=== PATIENT | female | born 1945 | race Caucasian/White ===

== ENCOUNTER 2024-09-29 20:44 | Emergency (ER) | payer MEDICARE ==
[~2024-09-29] VITALS: Ht 154.9 cm; Wt 61.2 kg
[2024-09-29 21:11] LABS: BASO % 0.8 % (0.0-1.0); EOS # 0.2 10*3/uL (0.0-0.4); EOS % 4.5 % (1.0-4.0); HEMATOCRIT 36.2 % (37.0-47.0); MEAN CELL VOLUME 86.4 fl (81.0-99.0); MEAN CORPUSCULAR HGB 27.2 pg (27.0-31.0); MEAN CORPUSCULAR HGB CONC 31.5 g/dl (33.0-37.0); MEAN PLATELET VOLUME 9.4 fl (9.6-12.3); MONO # 0.5 10*3/uL (0.1-1.0); MONO % 9.3 % (3.0-9.0); NEUT # 2.7 10*3/uL (2.3-7.9); NEUT % 53.1 % (47.0-73.0); PLATELET COUNT AUTOMATED 309 10*3/uL (130-400); RED BLOOD COUNT 4.19 10*6/uL (4.10-5.10); RED CELL DISTRI WIDTH 13.2 % (0-14.5); WHITE BLOOD COUNT 5.1 10*3/uL (4.8-10.8)
[2024-09-29 21:43] LABS: ALKALINE PHOSPHATASE 74 U/L (46-116); BUN 11 mg/dl (9-23); CHLORIDE 99 mmol/L (98-107); CPK 55 U/L (34-171); POTASSIUM 3.7 mmol/L (3.4-5.1); TOTAL PROTEIN 6.8 gm/dL (6.0-8.0)
[2024-09-29 21:44] LABS: ETHYL ALCOHOL < 3.0 mg/dl (<3); SGPT/ALT < 7 U/L (5-49)
[2024-09-29 21:51] LABS: BILIRUBIN Negative (Negative); BLOOD Negative (Negative); CLARITY Clear (Clear); COLOR Yellow (Yellow); GLUCOSE Negative (Negative); KETONE Negative (Negative); LEUKO ESTERASE Trace (Negative); NITRITE Negative (Negative); SPECIFIC GRAVITY 1.015 (1.001-1.030); UROBILINOGEN 0.2 E.U./dl (0.0-1.0)
[2024-09-29 21:58] LABS: URINE AMPHETAMINES Negative (1000ng/ml); URINE BARBITURATES Negative (200ng/ml); URINE BENZODIAZEPINES Negative (200ng/ml); URINE CANNABINOIDS (THC) Negative (50ng/ml); URINE COCAINE Negative (300ng/ml); URINE METHADONE Negative (300ng/ml); URINE OPIATES Negative (300ng/ml); URINE PHENCYCLIDINE Negative (25ng/ml)
[2024-09-29 22:03] LABS: BACTERIA 1+
[2024-09-30] MEDS ORDERED: LORAZEPAM0.5 M1 PO (00:21)
[2024-09-30] MEDS ORDERED: DONEPEZIL HCL10 MG PO (00:21)
[2024-09-30] MEDS ORDERED: ATENOLOL50 M1 PO (00:21)
[2024-09-30] MEDS ORDERED: HYDROCHLOROTH12.5 M2 PO (00:21)
[2024-09-30] MEDS ORDERED: HYDROXYZINE PAM25 M1 PO (00:22)
[2024-09-30] MEDS ORDERED: B-125000 MCG PO (00:23)
[2024-09-30] MEDS ORDERED: ROSUVASTATIN CA20 MG PO (00:24)
[2024-09-30] MEDS ORDERED: [UNRECOGNIZED DRUG - CODE] PO (00:24)
== END 2024-09-30 01:06 ==
LOC: ED 20:44
PROVIDERS: Nurse Practitioner Family
DX: F63.81 Intermittent explosive disorder (principal); F03.90 Unspecified dementia, unspecified severity, without behavioral disturbance, psychotic disturbance, mood disturbance, and anxiety; Z20.822 Contact with and (suspected) exposure to COVID-19; Z79.899 Other long term (current) drug therapy